=== PATIENT | female | born 1990 | race Caucasian/White ===

== ENCOUNTER 2016-12-04 00:26 | Emergency (ER) | payer SELFPAY ==
[2016-12-04] MEDS ORDERED: TRAMADOL HCL 50 MG TABLET PO ONE ×2 (00:50→00:51)
[2016-12-04] MEDS ORDERED: PENICILLIN V POTASSIUM 250 MG TAB PO ONE ×2 (00:52)
--- NOTE | 2016-12-04 00:53 | Emergency Department Record ---
History of Present Illness - General Chief complaint: Dental Stated complaint: TOOTHACHE Time Seen by Provider: 12/04/16 00:46 Source: Patient Mode of Arrival: Ambulatory - History of Present Illness Initial comments: Tooth pain for 3 weeks, worse tonight. No fever, chills, or swelling. Minimal relief with motrin. No dentist. MD complaint: Tooth pain Onset/Timin -: Days(s) Location: Tooth # Severity: Mild Severity scale (1-10): 7 Quality: Aching Consistency: Constant Improves with: NSAID, Pressure Worsens with: Eating Context- Dental: History of dental caries, Poor dental care - Related Data Previous Rx's Medication Instructions Recorded Penicillin V Potassium 500 mg PO Q6H #38 tab 12/04/16 Tramadol HCl [Ultram] 50 mg PO Q8H #7 tab 12/04/16 Allergies Allergy/AdvReac Type Severity Reaction Status Date / Time No Known Drug Allergies Allergy Verified 12/04/16 00:32 Travel Screening - Travel/Exposure Within Last 30 Days Have you traveled within the last 30 days?: No - Travel/Exposure Within Last Year Have you traveled outside the [place] in the last year?: No - Additonal Travel Details Have you been exposed to anyone with a communicable illness?: No - Travel Symptoms Symptom Screening: None Review of Systems Reviewed: No additional complaints except as noted below Constitutional: Reports: As per HPI. Denies: Chills, Fever, Malaise, Night sweats, Weakness, Weight change Eyes: Reports: As per HPI. Denies: Eye discharge, Eye pain, Photophobia, Vision change ENT: Reports: As per HPI. Denies: Congestion, Dental pain, Ear pain, Epistaxis , Hearing loss, Throat pain Respiratory: Reports: As per HPI. Denies: Cough, Dyspnea, Hemoptysis, Stridor, Wheezes Cardiovascular: Reports: As per HPI. Denies: Arrhythmia, Chest pain, Dyspnea on exertion, Edema, Murmurs, Orthopnea, Palpitations, Paroxysmal nocturnal dyspnea, Rheumatic Fever, Syncope Endocrine: Reports: As per HPI. Denies: Fatigue, Heat or cold intolerance, Polydipsia, Polyuria Gastrointestinal: Reports: As per HPI. Denies: Abdominal pain, Constipation, Diarrhea, Hematemesis, Hematochezia, Melena, Nausea, Vomiting Genitourinary: Reports: As per HPI. Denies: Abnormal menses, Discharge, Dyspareunia, Dysuria, Frequency, Hematuria, Incontinence, Retention, Urgency Musculoskeletal: Reports: As per HPI. Denies: Arthralgia, Back pain, Gout, Joint swelling, Myalgia, Neck pain Skin: Reports: As per HPI. Denies: Bruising, Change in color, Change in hair/ nails, Lesions, Pruritus, Rash Neurological: Reports: As per HPI. Denies: Abnormal gait, Confusion, Headache, Numbness, Paresthesias, Seizure, Tingling, Tremors, Vertigo, Weakness Psychiatric: Reports: As per HPI. Denies: Anxiety, Auditory hallucinations, Depression, Homicidal thoughts, Suicidal thoughts, Visual hallucinations Hematological/Lymphatic: Reports: As per HPI. Denies: Anemia, Blood Clots, Easy bleeding, Easy bruising, Swollen glands Past Medical History - SOCIAL HISTORY Smoking Status: Light tobacco smoker (<10/day) Alcohol Use: Occassional Drug Use: Occassional Drug Use Detail:: Marijuana - RESPIRATORY Hx Respiratory Disorders: Yes Comment:: SPONTANEOUS PNEUMOTHORAX - CARDIOVASCULAR Hx Cardio Disorders: No - NEURO Hx Neuro Disorders: No - GI Hx GI Disorders: No - Hx Genitourinary Disorders: No - ENDOCRINE Hx Endocrine Disorders: No - MUSCULOSKELETAL Hx Musculoskeletal Disorders: No - PSYCH Hx Psych Problems: No - HEMATOLOGY/ONCOLOGY Hx Hematology/Oncology Disorders: No Family Medical History Any Significant Family History?: No Physical Exam - General General Appearance: Alert, Oriented x3, Cooperative, Mild distress (holding right jaw) - Head Head exam: Normal inspection Image of Face/Head: 1 - tenderness over tooth #29, no swelling, no abscess visualized, no lymphadenopathy, no facial swelling - Eye Eye exam: Normal appearance, PERRL Pupils: Normal accommodation - ENT ENT exam: Normal exam, Mucous membranes moist, Normal external ear exam, Normal orophraynx, TM's normal bilaterally Ear exam: Normal external inspection. negative: External canal tenderness Nasal Exam: Normal inspection. negative: Discharge, Sinus tenderness Mouth exam: Normal external inspection, Tongue normal Teeth exam: Normal inspection. negative: Dental caries Throat exam: Normal inspection. negative: Tonsillar erythema, Tonsillar exudate - Neck Neck exam: Normal inspection, Full ROM. negative: Tenderness - Respiratory Respiratory exam: Normal lung sounds bilaterally. negative: Respiratory distress - Cardiovascular Cardiovascular Exam: Regular rate, Normal rhythm, Normal heart sounds - GI/Abdominal GI/Abdominal exam: Soft, Normal bowel sounds. negative: Tenderness - Rectal Rectal exam: Deferred - exam: Deferred - Extremities Extremities exam: Normal inspection, Full ROM, Normal capillary refill. negative: Tenderness - Back Back exam: Reports: Normal inspection, Full ROM. Denies: Muscle spasm, Rash noted, Tenderness - Neurological Neurological exam: Alert, Normal gait, Oriented X3, Reflexes normal - Psychiatric Psychiatric exam: Normal affect, Normal mood - Skin Skin exam: Dry, Intact, Normal color, Warm Course Vital Signs 12/04/16 00:35 Temperature 98.4 F Pulse Rate [ 82 Pulse Ox Probe] Respiratory 18 Rate Blood Pressure 118/85 [Left Arm] Pulse Ox 97 Medical Decision Making - Management Options MDM Management: No Additional Work-up Planned Disposition Disposition: Discharge Clinical Impression: Toothache Disposition: Home, Self-Care Condition: (1) Good Instructions: Dental Abscess (ED), Toothache (ED) Additional Instructions: Pen VK as directed until gone. Ultram as directed a needed for pain. Dental referral list. Call Tuesday for appointment without fail. Soft diet. Wash out mouth after all meals. Prescriptions: Penicillin V Potassium 500 mg PO Q6H #38 tab Tramadol HCl [Ultram] 50 mg PO Q8H #7 tab Forms: Patient Portal Access
== END 2016-12-04 01:15 | disposition home or self-care (01) ==
LOC: ER 00:26
DX: K08.89 Other specified disorders of teeth and supporting structures (principal)
CPT/HCPCS: 99282